=== PATIENT | male | born 1975 | race Caucasian/White ===

== ENCOUNTER 2018-12-03 16:28 | Emergency (ER) | payer MEDICAID ==
[~2018-12-03] VITALS: Ht 167.6 cm; Wt 72.6 kg
[2018-12-03 16:37] VITALS: BP 156/98
--- NOTE | 2018-12-03 16:39 | NUR ---
TRIAGE COMPLETE. VSS. OKAY TO WAIT IN LOBBY FOR BED IN ED.
--- NOTE | 2018-12-03 18:54 | NUR ---
PT TO ER BED 3
--- NOTE | 2018-12-03 19:37 | NUR ---
PT C/O LT LEG SWELLING AND PAIN X3 DAYS. DENIES TRAUMA. INTERMITTENT 8/10 PAIN. PAIN PROVOKED BY WALKING. SKIN INTACT, SLIGHTLY RED. +CMS. PT RESTING IN BED CALM, WITH FAMILY MEMBER AT BEDSIDE.
[2018-12-03] MEDS ORDERED: CEPHALEXIN 500 MG CAP PO ONE (20:05)
[2018-12-03] MEDS ORDERED: KETOROLAC 60 MG/2 ML VIAL IM ONE (20:05)
[2018-12-03] MEDS ORDERED: DOXYCYCLINE 100 MG CAP PO ONE (20:05)
--- NOTE | 2018-12-03 20:25 | NUR ---
XRAY AT BEDSIDE
--- NOTE | 2018-12-03 20:50 | NUR ---
PT RESTING IN BED. STATES PAIN WAS RESOLVED AFTER TORADOL. VSS.
--- NOTE | 2018-12-03 21:19 | NUR ---
Patient discharged with v/s stable. Written and verbal after care instructions given and explained. Patient alert, oriented and verbalized understanding of instructions. Ambulatory with to home. All questions addressed prior to discharge. ID band removed. Patient advised to follow up with PMD. Rx of TRAMADOL, BACTRIM, MOTRIN, KEFLEX given. Patient educated on indication of medication including possible reaction and side effects. Opportunity to ask questions provided and answered. PT ABULATED TO CARE WITH .
[2018-12-03 21:21] VITALS: BP 156/98
== END 2018-12-03 21:19 | disposition home or self-care (01) ==
LOC: MED 16:28
DX: L03.116 Cellulitis of left lower limb (principal)
CPT/HCPCS: 73590; 96372; 99283; J1885; Q0092